=== PATIENT | female | born 1945 | race Caucasian/White ===

== ENCOUNTER 2017-02-25 13:36 | Inpatient (IN) | payer OTHER, MEDICARE ==
[~2017-02-25] VITALS: Ht 162.6 cm; Wt 139.8 kg
[2017-03-03] MEDS ORDERED: LISI40TA PO (11:45)
[2017-03-03] MEDS ORDERED: ASPI-110 PO (11:46)
[2017-03-03] MEDS ORDERED: LEVO150T7 PO (11:46)
[2017-03-03] MEDS ORDERED: MULT-65 PO (11:46)
[2017-03-03] MEDS ORDERED: VITA100018 PO (11:46)
[2017-03-03] MEDS ORDERED: LABE200T2 PO (11:46)
[2017-03-03] MEDS ORDERED: FISH100020 PO (11:46)
[2017-03-03] MEDS ORDERED: ATOR40TA16 PO (11:46)
[2017-03-03] MEDS ORDERED: GLUC100017 PO (11:46)
[2017-03-03] MEDS ORDERED: METF1000 PO (11:46)
[2017-03-03] MEDS ORDERED: CALC600T25 PO (11:46)
[2017-03-03] MEDS ORDERED: VITA10002 PO (11:46)
[2017-03-03] MEDS ORDERED: SPIR50TA PO (11:46)
[2017-03-03] MEDS ORDERED: GLIP5TAB8 PO (11:46)
[2017-03-03] MEDS ORDERED: VITA500T83 PO (11:46)
--- NOTE | 2017-03-03 18:13 | MH ---
cc: Maira SHAW M.D. DATE OF ADMISSION 03/15/2017 ADMISSION DIAGNOSIS Osteoarthritic degeneration left knee now being admitted for left total knee arthroplasty. ADMISSION HISTORY AND PHYSICAL This pleasant 71-year-old female is being admitted today for left total knee arthroplasty due to severe painful osteoarthritic degeneration of the left knee. PAST MEDICAL HISTORY Other past history: 1. The patient has a history of anesthetic problems. 2. Diabetes. 3. Vertigo. 4. Hernia. 5. Hypertension. 6. Kidney problems. 7. sleep apnea. 8. Thyroid problems. CURRENT MEDICATIONS Include: 1. Atorvastatin. 2. Glipizide. 3. Levoxyl. 4. Labetalol. 5. Lisinopril. 6. Metformin. 7. Spironolactone. 8. Lasix as needed. PAST SURGICAL HISTORY Previous surgery includes: 1. Right total knee arthroplasty in the past. 2. Right patella tendon replacement. 3. A total hysterectomy 1988. 4. Left rotator cuff repair. REVIEW OF SYSTEMS Noncontributory. FAMILY HISTORY Noncontributory. SOCIAL HISTORY She does not smoke or drink. ALLERGIES TO SULFA DRUGS AND ADHESIVE TAPE AND GLUE. PHYSICAL EXAMINATION GENERAL: We find a 71-year-old female well-developed, well-nourished, alert and oriented times three complaining of pain in her left knee. VITAL SIGNS: Blood pressure 142/100, pulse 82 and regular, respirations 18, temperature 97.8, pulse oximetry 97% on room air. HEENT: Eyes PERRL, EOMI. Ears, nose, mouth clear. NECK: Supple. LUNGS: Clear. HEART: Regular rate. ABDOMEN: Soft. Positive bowel sounds. Nontender. EXTREMITIES: Reveal the left knee to be tender with crepitance on range of motion. She is otherwise neurovascularly intact to her toes. IMPRESSION At this time is severe painful osteoarthritic degeneration left knee. PLAN The plan is admission for left total knee arthroplasty today. The patient given prescription for postoperative pain and anticoagulation control in the office. MD MICHAEL Sotelo/KK /3:42 PM /6:03 PM
[2017-03-15] MEDS ORDERED: VANCOMYCIN 1000 MG/NS 250 ML (for <70 kg) IV SCH ×2 (06:30)
[2017-03-15] MEDS ORDERED: ceFAZolin 2 GM PREMIX 50 ML IV SCH (06:30)
[2017-03-15] MEDS ORDERED: EXPAREL PERI-ARTICULAR INJECTION (TOTAL VOL. 120 ML) P-ARTICULR SCH ×2 (06:30)
[2017-03-15] MEDS ORDERED: CHLORHEXIDINE GLUCONATE 4% SOLN 120 ML BTL TOPICAL SCH (06:30)
[2017-03-15] MEDS ORDERED: SODIUM CHLORIDE 0.9% IV SCH ×4 (06:30)
[2017-03-15] MEDS ORDERED: TRANEXAMIC ACID IV SCH ×4 (06:30)
[2017-03-15] MEDS ORDERED: METOPROLOL TARTRATE 25 MG TAB PO PRN (06:45)
[2017-03-15] MEDS ORDERED: CHLORHEXIDINE GLUCONATE 2 % 1 PACK (2 CLOTHS) TOPICAL PRN (06:45)
[2017-03-15] MEDS ORDERED: POVIDONE IODINE 5% (ANTISEPSIS KIT) 4 APPLICATIONS EACH NARE PRN (06:45)
[2017-03-15] MEDS ORDERED: SODIUM CHLORID 0.9% 500 ML IV PRN (06:45)
[2017-03-15] MEDS ORDERED: INSULIN HUMAN REGULAR 1,000 UNITS/10 ML VIAL SQ PRN (06:45)
[2017-03-15] MEDS ORDERED: LACTATED RINGER'S 1000 ML IV PRN (06:45)
[2017-03-15 06:48] VITALS: BP 137/46; PULSE 73; RESP 20; TEMP 97.8; O2SAT 97
[2017-03-15] MEDS ORDERED: MIDAZOLAM HCL 2 MG/2 ML VIAL ONE (07:53)
[2017-03-15] MEDS ORDERED: FAMOTIDINE 20 MG/2 ML VIAL ONE (07:53)
[2017-03-15] MEDS ORDERED: TOBRAMYCIN SULFATE 1200 MG VIAL ONE (08:34)
[2017-03-15] MEDS ORDERED: ceFAZolin INJ 1,000 MG VIAL XX ONE (08:46)
[2017-03-15] MEDS ORDERED: TOBRAMYCIN SULFATE 1200 MG VIAL OTHER ONE ×2 (08:54→09:37)
[2017-03-15] MEDS ORDERED: ROPIVACAINE 0.5% PF INJ 30 ML VIAL NERV BLOCK ONE (09:00)
[2017-03-15] MEDS ORDERED: BUPIVACAINE HCL PF 0.25% 30 ML VIAL NERV BLOCK ONE (09:00)
[2017-03-15] MEDS ORDERED: DEXAMETHASONE SOD PHOS PF 10 MG/ML VIAL IV ONE (09:00)
[2017-03-15] MEDS ORDERED: ceFAZolin INJ 1,000 MG VIAL IV ONE (09:35)
[2017-03-15] MEDS ORDERED: VANCOMYCIN HCL 1000 MG VIAL ONE (10:32)
[2017-03-15] MEDS ORDERED: VANCOMYCIN HCL 1000 MG VIAL OTHER ONE (10:33)
[2017-03-15] MEDS ORDERED: ONDANSETRON HCL 4 MG/2 ML VIAL IVP PRN (10:45)
[2017-03-15] MEDS ORDERED: diphenhydrAMINE HCL 50 MG/ML VIAL IV PRN (10:45)
[2017-03-15] MEDS ORDERED: TRANEXAMIC ACID INJ 0 MG in SODIUM CHLORIDE 0.9% INJ 100 ML IV SCH (10:45)
[2017-03-15] MEDS ORDERED: NALOXONE HCL 0.4 MG/ML AMP IV PRN (10:45)
[2017-03-15] MEDS ORDERED: ACETAMINOPHEN 325 MG TAB PO PRN (10:45)
[2017-03-15] MEDS ORDERED: TEMAZEPAM 15 MG CAP PO PRN (10:45)
[2017-03-15] MEDS ORDERED: SODIUM CHLORIDE 0.9% FLUSH 5 ML FLUSH IVF PRN (10:45)
[2017-03-15] MEDS ORDERED: MORPHINE SULFATE 30 MG/30 ML PCA IV SCH (10:45)
[2017-03-15] MEDS ORDERED: Post-op Orders (for Pharmacy) MISC XX ONE (10:45)
--- NOTE | 2017-03-15 10:47 | HHI.FF ---
Face to Face Verification Diagnosis: (1) Status post total left knee replacement Physical Therapy Gait training Knee: Total knee, Protocol: Left, Full weight bearing Canvas Knee Splint: When in bed & 2 pillows btw thighs Nursing RN: 3 days/week x 2 weeks Nursing: Ernesto teaching, Dressing changes Dressing Changes: Daily dressing change, 4x4s, Gauze, Paper tape I have seen patient Rupal Vazquez on 03/15/17. My clinical findings support the need for the requested home health care services because: Limited ability to care for self High risk of falls I certify that my clinical findings support that this patient is homebound because: Unsteady gait/balance Maira Hong MD Mar 15, 2017 10:47
[2017-03-15] MEDS ORDERED: ADJUSTABLE COMM1 MIS (10:49)
[2017-03-15] MEDS ORDERED: CPMMACHINE (10:49)
[2017-03-15] MEDS ORDERED: WALKER WHEELS/F1 MIS (10:49)
[2017-03-15] MEDS ORDERED: DO NOT ADM ANY ANTICOAGULANT DRUGS PRN (11:00)
[2017-03-15] MEDS: LACTATED RINGER'S 1000 ML INJ 1,000 ML IV SCH ×2 (11:00→23:46)
[2017-03-15] MEDS ORDERED: fentaNYL CITRATE 250 MCG/5 ML AMP ONE (11:07)
[2017-03-15] MEDS ORDERED: SUGAMMADEX SODIUM 200 MG/2 ML VIAL IV PUSH ONE ×2 (11:24)
--- NOTE | 2017-03-15 11:47 | RADRPT ---
EXAM DATE/TIME: 03/15/2017 11:15 [place] COMPARISON: No previous studies available for comparison. INDICATIONS : Post op total left knee prosthesis. MEDICAL HISTORY : None. SURGICAL HISTORY : None. ENCOUNTER: Initial ACUITY: 1 day PAIN SCORE: 10/10 LOCATION: Right knee FINDINGS: Postsurgical features of left knee arthroplasty. Arthroplasty components are in anatomic alignment. N o significant acute bony fracture. Immediate postsurgical soft tissue features. CONCLUSION: 1. Status post left knee arthroplasty in anatomic alignment without significant acute bony fracture. Edinson Funes MD on March 15, 2017 at 11:43 Board Certified Radiologist. This report was verified electronically.
[2017-03-15] MEDS ORDERED: ONDANSETRON HCL 4 MG/2 ML VIAL IV PUSH ONE (12:00)
[2017-03-15] MEDS ORDERED: LACTATED RINGER'S 1000 ML INJ 2,000 ML IV ONE (12:00)
[2017-03-15] MEDS ORDERED: PROPOFOL 200 MG/20 ML AMP IV ONE (12:00)
[2017-03-15 12:20] VITALS: BP 174/77; PULSE 75; RESP 15; TEMP 95.8; O2SAT 100
[2017-03-15] MEDS: PCA - TOTAL MG MORPHINE DELIVERED PER SHIFT SCH ×2 (14:00→21:05)
--- NOTE | 2017-03-15 14:13 | PD.CONS ---
HPI Service [facility] Hospitalists Consult Requested By Dr. Floyd Hong Reason for Consult Medical Management Primary Care Physician Santiago Olguin MD Diagnoses: History of Present Illness Mrs. Vazquez is a pleasant 71 y/o female with HTN, hyperlipidemia, hypothyroidism , osteoarthritis and diabetes mellitus who was admitted on 03/15/17 for left total knee arthroplasty with Dr. Floyd Hong for severe degenerative osteoarthritis. The [facility] Hospitalist team was consulted to help with managing the pts chronic medical issues. Pt is seen post-operatively. Her pain is currently controlled. Pt just worked with PT and was able to get out of the bed to the chair but then became very nauseated and had some dry heaving/vomiting. Pt denies any abdominal pain, chest pain, or SOB. Vitals are stable. Mackenzie catheter in place. Her home medications were verified with the pt at bedside. Review of Systems Constitutional: DENIES: Fever, Chills Respiratory: DENIES: Shortness of breath Cardiovascular: DENIES: Chest pain Gastrointestinal: COMPLAINS OF: Nausea, Vomiting, DENIES: Abdominal pain Genitourinary: DENIES: Hematuria Musculoskeletal: COMPLAINS OF: Joint pain Integumentary: DENIES: Rash Neurologic: DENIES: Headache Psychiatric: DENIES: Confusion Past Family Social History Past Medical History Anxiety CAD CKD, stage 3 Diabetes mellitus, Hgb A1C 7.1% in 12/2016 GERD Hx of H. pylori infection HTN Hyperlipidemia Hypothyroidism Osteoarthritis Obesity Vertigo Past Surgical History Right knee poly exchange and allograft reconstruction patellar tendon in 2012 Right total knee arthroplasty in 2011 [facility] Reported Medications -Aspirin 81 Mg PO DAILY -Metformin 1,000 Mg PO BIDPC -Lisinopril 40 Mg PO BID -Levothyroxine 150 Mcg PO DAILY -Spironolactone 25 Mg PO DAILY -Labetalol 200 Mg PO TID -Atorvastatin 80Mg PO HS -Glipizide 10Mg PO BIDAC Fish Oil 1000 mg PO DAILY Glucosamine 1,000 Mg PO DAILY Vitamin B-12 1,000 Mcg PO ,W, Calcium 600 Mg PO DAILY Vitamin C ER 500 Mg PO DAILY Vitamin D3 1,000 Units PO DAILY Multi-Vitamin Daily 1 Tab PO DAILY Allergies: Coded Allergies: Sulfa (Verified Allergy, Severe, 03/15/17) Latex (Verified Allergy, Intermediate, RASH, 03/15/17) Family History Noncontributory Social History Denies any alcohol, tobacco or illicit drug use Physical Exam Vital Signs Vital Signs Date Time Temp Pulse Resp B/P Pulse Ox O2 Delivery O2 Flow Rate FiO2 03/15/17 12:20 95.8 75 15 174/77 100 03/15/17 12:15 98.1 71 14 159/78 99 Nasal Cannula 2 03/15/17 12:00 71 14 156/75 99 Nasal Cannula 2 03/15/17 11:45 72 14 168/77 99 Nasal Cannula 3 03/15/17 11:30 72 14 162/75 99 Nasal Cannula 4 03/15/17 11:29 14 03/15/17 11:15 73 14 157/72 98 Nasal Cannula 4 03/15/17 11:00 97.8 72 14 147/67 96 Nasal Cannula 4 03/15/17 06:48 97.8 73 20 137/46 97 Physical Exam GENERAL: This is a well-nourished, well-developed patient, in no apparent distress. HEENT: Atraumatic. Normocephalic. No temporal or scalp tenderness. No scleral icterus. Airway patent. NECK: Trachea midline, supple, nontender, no meningeal signs. CARDIO: Regular RESP: CTA bilaterally. No wheezes, rales, or rhonchi. ABD: +BS, soft, non-tender, nondistended. EXT: Left knee bandages are c/d/i. NEURO: Awake and alert. Motor and sensory grossly within normal limits. Normal speech. Laboratory Laboratory Tests Test 03/15/17 07:15 Blood Type O POSITIVE Antibody Screen NEGATIVE Blood Bank Comment Imaging Last Impressions Knee X-Ray 03/15/17 1043 Signed Impressions: Service Date/Time: Wednesday, March 15, 2017 11:15 - CONCLUSION: 1. Status post left knee arthroplasty in anatomic alignment without significant acute bony fracture. Edinson Funes MD Assessment and Plan Problem List: (1) Status post total left knee replacement Status: Acute Plan: - Pt s/p left total knee arthroplasty on 03/15/[address] Hong - Post-op pain control per Ortho - Zofran Q4H PRN for post-op nausea/vomiting - PT daily - Constipation precautions - IS - DVT prophylaxis with Lovenox (2) Osteoarthritis of left knee Status: Chronic Plan: - See above. (3) Diabetes Status: Chronic Plan: - OHA resumed - Low dose NovoLog SSI - Accu checks (4) HTN (hypertension), benign Status: Chronic Plan: - Home meds resumed - monitor (5) Hypothyroidism Status: Chronic Plan: - Home meds resumed (6) Chronic kidney disease Status: Chronic (7) Sleep apnea Status: Chronic (8) Diabetes mellitus Status: Acute Assessment and Plan Patient examined. Assessment and plan formulated with Maeve Ogden PA-C. I agree with the above. s/p tka. htn,dm,hypothyroidism. currently with nausea and dry heaves. meds given reviewed home meds with pt and family for clarification. Problem Qualifiers (1) Osteoarthritis of left knee: Qualified Code: M17.12 - Primary osteoarthritis of left knee (2) Diabetes: (3) Chronic kidney disease: Qualified Code: N18.3 - Stage 3 chronic kidney disease Maeve Ogden Mar 15, 2017 14:13 Floyd Bañuelos MD Mar 15, 2017 15:27
[2017-03-15] MEDS ORDERED: MAGNESIUM HYDROXIDE SUSP 30 ML CUP PO PRN (14:45)
[2017-03-15] MEDS ORDERED: BISACODYL 10 MG SUPP RECTAL PRN (14:45)
[2017-03-15] MEDS ORDERED: SENNOSIDES 8.6 MG TAB PO PRN (14:45)
[2017-03-15] MEDS: INSULIN ASPART SUPPLEMENTAL SCALE SQ SCH ×2 (15:57→21:04)
[2017-03-15] MEDS: glipiZIDE 10 MG TAB PO SCH (15:57)
[2017-03-15 16:00] VITALS: BP 180/67; PULSE 70; RESP 17; TEMP 96.5; O2SAT 99
[2017-03-15] MEDS ORDERED: glipiZIDE 5 MG TAB PO SCH (16:00)
[2017-03-15] MEDS ORDERED: cloNIDine HCL 0.1 MG TAB PO PRN (16:30)
[2017-03-15] MEDS: LABETALOL HCL 200 MG TAB PO SCH (16:34)
[2017-03-15] MEDS: metFORMIN HCL 500 MG TAB PO SCH (17:32)
[2017-03-15] MEDS: ONDANSETRON HCL 4 MG/2 ML VIAL IVP PRN (18:48)
[2017-03-15] MEDS ORDERED: ATORVASTATIN 40 MG TAB PO SCH (21:00)
[2017-03-15] MEDS: SODIUM CHLORIDE 0.9% FLUSH 5 ML FLUSH IVF SCH (21:00)
[2017-03-15] MEDS ORDERED: LABETALOL HCL 200 MG TAB PO SCH (21:00)
[2017-03-15] MEDS: ATORVASTATIN 80 MG TAB PO SCH (21:05)
[2017-03-15] MEDS: LISINOPRIL 20 MG TAB PO SCH (21:05)
[2017-03-15 21:10] VITALS: BP 172/74; PULSE 76; RESP 19; TEMP 96; O2SAT 96
[2017-03-16 00:10] VITALS: BP 137/61; PULSE 80; RESP 19; TEMP 97.9; O2SAT 95
[2017-03-16 05:00] VITALS: BP 146/69; PULSE 82; RESP 19; TEMP 97.7; O2SAT 95
[2017-03-16] MEDS: LEVOTHYROXINE SODIUM 150 MCG TAB PO SCH (05:26)
[2017-03-16] MEDS: PCA - TOTAL MG MORPHINE DELIVERED PER SHIFT SCH ×3 (05:27→22:00)
[2017-03-16] MEDS: INSULIN ASPART SUPPLEMENTAL SCALE SQ SCH ×4 (06:07→21:00)
[2017-03-16] MEDS: glipiZIDE 10 MG TAB PO SCH ×2 (06:09→16:21)
[2017-03-16 08:00] VITALS: BP 149/65; PULSE 74; RESP 18; TEMP 98.4; O2SAT 96
--- NOTE | 2017-03-16 08:07 | PD.ORT.PN ---
Subjective Subjective Remarks pt fairly comfortable today. worried about falling. Objective Vitals Vital Signs Date Time Temp Pulse Resp B/P Pulse Ox O2 Delivery O2 Flow Rate FiO2 03/16/17 05:27 18 03/16/17 05:00 97.7 82 19 146/69 95 03/16/17 00:10 97.9 80 19 137/61 95 03/15/17 21:10 96.0 76 19 172/74 96 03/15/17 21:05 18 03/15/17 16:00 96.5 70 17 180/67 99 03/15/17 14:00 18 03/15/17 12:20 95.8 75 15 174/77 100 03/15/17 12:15 98.1 71 14 159/78 99 Nasal Cannula 2 03/15/17 12:00 71 14 156/75 99 Nasal Cannula 2 03/15/17 11:45 72 14 168/77 99 Nasal Cannula 3 03/15/17 11:30 72 14 162/75 99 Nasal Cannula 4 03/15/17 11:29 14 03/15/17 11:15 73 14 157/72 98 Nasal Cannula 4 03/15/17 11:00 97.8 72 14 147/67 96 Nasal Cannula 4 I/O 03/15/17 03/15/17 03/15/17 03/16/17 03/16/17 03/16/17 07:00 15:00 23:00 07:00 15:00 23:00 Intake Total 2040 ml 240 ml 480 ml Output Total 550 ml Balance 1490 ml 240 ml 480 ml Intake Oral 240 ml 240 ml 480 ml Other 1800 ml Output Urine Total 350 ml Estimated Blood Loss 200 ml # Voids 1 3 3 # Bowel Movements 0 0 Imaging Last 24 hours Impressions Knee X-Ray 03/15/17 1043 Signed Impressions: Service Date/Time: Wednesday, March 15, 2017 11:15 - CONCLUSION: 1. Status post left knee arthroplasty in anatomic alignment without significant acute bony fracture. Edinson Funes MD Objective Remarks Dressing dry and intact. No calf tenderness. Assessment & Plan Ortho Post Op Day #: 1 Problem List: Assessment and Plan PT OOB, wound care. 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 Maira Hong MD Mar 16, 2017 08:07
[2017-03-16 08:17] LABS: AUTOMATED NEUTROPHIL # 11.6 TH/MM3 (1.8-7.7); BASOPHIL # 0.1 TH/MM3 (0-0.2); BASOPHIL % 0.5 % (0.0-2.0); EOSINOPHIL % 0.1 % (0.0-4.0); HEMATOCRIT 29.7 % (35.0-46.0); LYMPH % 10.7 % (9.0-44.0); LYMPHOCYTE # 1.7 TH/MM3 (1.0-4.8); MEAN CELL VOLUME 90.1 FL (80.0-100.0); MEAN CORPUSCULAR HEMOGLOBIN 30.2 PG (27.0-34.0); MEAN CORPUSCULAR HGB CONC 33.5 % (32.0-36.0); MONO % 15.3 % (0.0-8.0); NEUT % 73.4 % (16.0-70.0); PLATELET COUNT 264 TH/MM3 (150-450); RED CELL DISTRIBUTION WIDTH 13.8 % (11.6-17.2); WHITE BLOOD COUNT 15.8 TH/MM3 (4.0-11.0)
[2017-03-16 08:23] LABS: HEMO FLAGS AUTO DIFF
[2017-03-16 08:48] LABS: BICARBONATE 22.8 MEQ/L (21.0-32.0); MAGNESIUM 1.4 MG/DL (1.5-2.5); POTASSIUM 4.1 MEQ/L (3.5-5.1)
[2017-03-16] MEDS ORDERED: SPIRONOLACTONE 50 MG TAB PO SCH (09:00)
[2017-03-16] MEDS: CYANOCOBALAMIN 1,000 MCG TAB PO SCH (09:00)
[2017-03-16] MEDS: SODIUM CHLORIDE 0.9% FLUSH 5 ML FLUSH IVF SCH ×2 (09:00→21:00)
[2017-03-16] MEDS ORDERED: NON-FORMULARY DRUG (Omega-3 Fatty Acids (Fish Oil 1000 mg) 1 CAP) PO SCH (09:00)
[2017-03-16] MEDS ORDERED: NON-FORMULARY DRUG (Glucosamine 1,000 MG) PO SCH (09:00)
[2017-03-16] MEDS: LISINOPRIL 20 MG TAB PO SCH ×2 (09:10→23:01)
[2017-03-16] MEDS: MULTIVITAMIN TAB PO SCH (09:10)
[2017-03-16] MEDS: metFORMIN HCL 500 MG TAB PO SCH ×2 (09:10→18:09)
[2017-03-16] MEDS: SPIRONOLACTONE 25 MG TAB PO SCH (09:10)
[2017-03-16] MEDS: ENOXAPARIN SODIUM 30 MG/0.3 ML SYRINGE SQ SCH ×2 (09:10→22:59)
[2017-03-16] MEDS: LABETALOL HCL 200 MG TAB PO SCH ×3 (09:11→18:09)
[2017-03-16] MEDS: ACETAMINOPHEN/HYDROcodone 325 MG/7.5 MG TAB PO PRN ×4 (09:11→23:24)
[2017-03-16] MEDS: ASCORBIC ACID 500 MG TAB PO SCH (09:11)
[2017-03-16] MEDS: CHOLECALCIFEROL (VIT D3) 1000 UNIT TAB PO SCH (09:11)
[2017-03-16] MEDS: ASPIRIN EC 81 MG TABEC PO SCH (09:11)
[2017-03-16] MEDS: CALCIUM CARBONATE 500 MG CHEWABLE TAB PO SCH (09:17)
[2017-03-16 10:06] LABS: SCAN/DIFF AUTO DIFF CONFIRMED
[2017-03-16] MEDS: MAGNESIUM SULFATE 1 GM PREMIX 100 ML IV SCH ×2 (10:28→11:52)
[2017-03-16] MEDS: LACTATED RINGER'S 1000 ML INJ 1,000 ML IV SCH (11:43)
[2017-03-16 12:00] VITALS: BP 152/71; PULSE 68; RESP 18; TEMP 96.5; O2SAT 98
[2017-03-16 16:00] VITALS: BP 143/70; PULSE 74; RESP 18; TEMP 98.2; O2SAT 97
[2017-03-16 20:10] VITALS: BP 130/59; PULSE 72; RESP 17; TEMP 96.7; O2SAT 96
[2017-03-16] MEDS: MULTIVITAMINS/MINERALS THERAPEUTIC TAB PO SCH (23:01)
[2017-03-16] MEDS: ATORVASTATIN 80 MG TAB PO SCH (23:01)
[2017-03-16] MEDS: DOCUSATE SODIUM 100 MG CAP PO SCH (23:01)
[2017-03-17 00:15] VITALS: BP 114/53; PULSE 75; RESP 18; TEMP 98.5; O2SAT 95
[2017-03-17 04:20] VITALS: BP 113/53; PULSE 74; RESP 17; TEMP 97.3; O2SAT 96
[2017-03-17] MEDS: ACETAMINOPHEN/HYDROcodone 325 MG/7.5 MG TAB PO PRN ×3 (04:50→15:19)
[2017-03-17] MEDS: LEVOTHYROXINE SODIUM 150 MCG TAB PO SCH (06:00)
[2017-03-17] MEDS: glipiZIDE 10 MG TAB PO SCH ×2 (07:00→15:19)
[2017-03-17] MEDS: INSULIN ASPART SUPPLEMENTAL SCALE SQ SCH ×2 (07:00→13:43)
[2017-03-17 07:31] LABS: HEMATOCRIT 26.3 % (35.0-46.0); REVIEW FLAG FINAL
--- NOTE | 2017-03-17 07:49 | PD.ORT.PN ---
Subjective Subjective Remarks pt fairly comfortable today. brace working well. Objective Vitals Vital Signs Date Time Temp Pulse Resp B/P Pulse Ox O2 Delivery O2 Flow Rate FiO2 03/17/17 04:20 97.3 74 17 113/53 96 03/17/17 00:15 98.5 75 18 114/53 95 03/16/17 20:10 96.7 72 17 130/59 96 03/16/17 16:00 98.2 74 18 143/70 97 03/16/17 12:00 96.5 68 18 152/71 98 03/16/17 10:11 18 03/16/17 08:00 98.4 74 18 149/65 96 I/O 03/16/17 03/16/17 03/16/17 03/17/17 03/17/17 03/17/17 06:59 14:59 22:59 06:59 14:59 22:59 Intake Total 480 ml 650 ml 480 ml 120 ml Balance 480 ml 650 ml 480 ml 120 ml Intake Oral 480 ml 650 ml 480 ml 120 ml # Voids 3 3 1 1 # Bowel Movements 0 0 0 Result Diagram: 03/17/17 0640 03/16/17 0729 Imaging Last 24 hours Impressions Knee X-Ray 03/15/17 1043 Signed Impressions: Service Date/Time: Wednesday, March 15, 2017 11:15 - CONCLUSION: 1. Status post left knee arthroplasty in anatomic alignment without significant acute bony fracture. Edinson Funes MD Objective Remarks Dressing dry and intact. No calf tenderness. Assessment & Plan Ortho Post Op Day #: 2 Problem List: Assessment and Plan PT OOB, wound care. SNF tomorrow. Maira Hong MD Mar 17, 2017 07:49
[2017-03-17 08:00] VITALS: BP 115/52; PULSE 77; RESP 16; TEMP 97; O2SAT 98
[2017-03-17] MEDS: ONDANSETRON HCL 4 MG/2 ML VIAL IVP PRN (09:50)
[2017-03-17] MEDS: ASCORBIC ACID 500 MG TAB PO SCH (09:55)
[2017-03-17] MEDS: LISINOPRIL 20 MG TAB PO SCH (09:55)
[2017-03-17] MEDS: CALCIUM CARBONATE 500 MG CHEWABLE TAB PO SCH (09:55)
[2017-03-17] MEDS: metFORMIN HCL 500 MG TAB PO SCH (09:56)
[2017-03-17] MEDS: MULTIVITAMIN TAB PO SCH (09:56)
[2017-03-17] MEDS: LABETALOL HCL 200 MG TAB PO SCH ×2 (09:56→13:38)
[2017-03-17] MEDS: MULTIVITAMINS/MINERALS THERAPEUTIC TAB PO SCH (09:56)
[2017-03-17] MEDS: ASPIRIN EC 81 MG TABEC PO SCH (09:57)
[2017-03-17] MEDS: DOCUSATE SODIUM 100 MG CAP PO SCH (09:57)
[2017-03-17] MEDS: CHOLECALCIFEROL (VIT D3) 1000 UNIT TAB PO SCH (09:57)
[2017-03-17] MEDS: SPIRONOLACTONE 25 MG TAB PO SCH (09:57)
[2017-03-17] MEDS: CYANOCOBALAMIN 1,000 MCG TAB PO SCH (09:57)
[2017-03-17] MEDS: ENOXAPARIN SODIUM 30 MG/0.3 ML SYRINGE SQ SCH (09:59)
[2017-03-17] MEDS: SODIUM CHLORIDE 0.9% FLUSH 5 ML FLUSH IVF SCH (09:59)
[2017-03-17] MEDS ORDERED: BACITRACIN OINT 0.9 GM PKT TOP PRN (10:15)
--- NOTE | 2017-03-17 10:31 | MP ---
cc: Maira HONG DATE OF SURGERY 03/15/2017 PREOPERATIVE DIAGNOSIS Osteoarthritic degeneration left knee. POSTOPERATIVE DIAGNOSIS Osteoarthritic degeneration left knee. SURGERY PERFORMED Left total knee arthroplasty using Consensus knee system components sizes 3 femur, a size 1 tibia, size 1 patella and a size 14 insert with two batches of antibiotic impregnated cement with Tobramycin. SURGEON Dr. Hong PASSENGER LOCOMOTIVE ENGINEER THEO Li ANESTHESIA General intubation and block PROCEDURE After successful induction of anesthesia, the patient is placed on the operating room table in the supine position. The knee is prepped and draped in the usual manner. No tourniquet was utilized. A longitudinal incision is made extending from 3 inches proximal to the superior pole of the patella, across the patella in longitudinal fashion, and down past the insertion of the tibial tubercle into the proximal tibia. The incision is carried down through subcutaneous tissue along the medial aspect of the patella and retinaculum, down through the capsule to expose the knee joint. The patella and patellar tendon are freed up enough to allow the patella to be inverted and retracted off the lateral side of the knee joint. The knee joint is left exposed. Small osteophytes are removed. All soft tissue is removed to allow proper position of the femoral and tibial cutting jig guide. The first femoral jig is then inserted along the distal end of the femur after first measuring to decide whether this is a small, medium, or large component. The notch is then drilled and the tibial cutting guide inserted into the femoral cutting guide, along with the ankle brace to allow for proper measurement of the tibial cutting surface that needed to be resected. Pins are inserted into the tibial cutting jig and femoral cutting jig to hold them in place. An oscillating saw is then used to resect the surface of the tibia. The surface of the tibia is then completely removed using sharp and blunt dissection. The anterior and posterior cuts of the femur are then made as well using an oscillating saw through the cutting guide. All guides are then removed and the varus/valgus angulation cutting guide applied to the femur for proper measurement of the proper amount of valgus. The anterior cutting guide for the femur is then inserted at the anterior femoral cuts made. Next, the first block trial is inserted into the femur to allow for proper condyle drill holes to be made which are then made followed by removal of the bone between the condyles using an oscillating saw as well as the bone removed at the most posterior surface of the condyle. After this, this guide is removed and the chamfer cuts made using the chamfer cutting guide from both anterior and posterior. Next, the femoral trial is then inserted, the tibial surface reflected anterior to expose the tibial surface and a tibial stem guide is inserted after first measuring for a standard, standard plus, large, or large plus surface to be used. After the stem is impacted the trial tibial surface is applied followed by the trial meniscal components. After full range of motion is found with the appropriate length meniscal components varying the patella is prepared by resecting the posterior aspect of the patella using an oscillating saw, inserting a trial. The trial is then removed and the cruciate cutting guide applied using the bur to cut the cruciate cuts. After cruciate cuts are made all trials are removed. The wound is irrigated copiously with antibiotic solution and Water-Pik and the actual components inserted into place using Consensus knee system components sizes 3 femur, a size 1 tibia, size 1 patella and a size 14 insert with two batches of antibiotic impregnated cement with Tobramycin. After the cement has hardened and the components are found to have full range of motion with no instability. The wound again is irrigated copiously with antibiotic solution, meticulous hemostasis achieved. 120 cc of Exparel used for extra local block around the knee joint. The deep fascia approximated with running #2 quill, subcutaneous tissue approximated using interrupted running 2-0 and 3-0 Monocryl sutures, Steri-Strips, sterile dressing, and knee immobilizer. THEO Li was present during the entire procedure to include patient positioning and the procedure. The medical necessity of a nurse practitioner nurse first assist was indicated this case due to the surgical complexity of the case itself and during the surgical case as surgical assistant was working the back table while my surgical territory manager METAL SHEET ROLLER OPERATOR was directly assisting me. Total blood loss 200 cc. Sponge suture count correct. The patient tolerated the procedure well and left the operating room in satisfactory condition. J. MD MICHAEL Watt/AGA /11:07 AM /10:26 AM
[2017-03-17 12:00] VITALS: BP 186/77; PULSE 74; RESP 20; TEMP 97.4; O2SAT 99
[2017-03-17] MEDS ORDERED: HYDR-3288 PO ×2 (14:38)
[2017-03-17 15:26] VITALS: BP 142/44
== END 2017-03-17 15:57 | DRG 470 ==
LOC: HSDI 03-15 06:01 → N06B 03-15 12:31
PROVIDERS: ADMIT Surgery; ATTEND Surgery
PROC: 3E0T3CZ (ICD-10-PCS; 2017-03-15)
PROC: 0SRD0J9 Replacement of Left Knee Joint with Synthetic Substitute, Cemented, Open Approach (ICD-10-PCS; principal; 2017-03-15 07:57)
DX: M17.12 Unilateral primary osteoarthritis, left knee (principal); E11.22 Type 2 diabetes mellitus with diabetic chronic kidney disease; N18.3 Chronic kidney disease, stage 3 (moderate); Z68.43 Body mass index [BMI] 50.0-59.9, adult; I12.9 Hypertensive chronic kidney disease with stage 1 through stage 4 chronic kidney disease, or unspecified chronic kidney disease; E03.9 Hypothyroidism, unspecified; E78.5 Hyperlipidemia, unspecified; G47.30 Sleep apnea, unspecified; Z96.651 Presence of right artificial knee joint; E66.9 Obesity, unspecified; I25.10 Atherosclerotic heart disease of native coronary artery without angina pectoris; K21.9 Gastro-esophageal reflux disease without esophagitis; R11.2 Nausea with vomiting, unspecified; Z79.84 Long term (current) use of oral hypoglycemic drugs; Z86.19 Personal history of other infectious and parasitic diseases
CPT/HCPCS: 73560; 80048; 82948; 83735; 85014; 85018; 85025; 86850; 86900; 86901; 94150; C1776; C9290; J0690; J1100; J1650; J1815; J2250; J2270; J2405; J2795; J3010; J3260; J3370; J3475; J7050; J7120; L1810; L1830

== ENCOUNTER → 2017-03-03 | Outpatient (CLI) | payer OTHER ==
[~2017-03-03] MED LIST: 1-ME1LIQ OR; ACET1TAB86 PO; ADJUSTABLE COMM1 MIS; AMLO5 PO; ASPI-110 PO; ASPI325T PO; ASPI81 PO; ATOR40TA16 PO; B12; CALC-187 PO; CALC500T30 PO; CALC600T25 PO; CEPH500C3 PO; CPMMACHINE; DOXY100C PO; ENOX30P SQ; FISH100020 PO; FURO20TA PO; GLIP5 PO; GLIP5TAB8 PO; GLUC100017 PO; GLUCTAB PO; GLYB1TAB51 PO; HYDR-3288 PO; HYDR-3516 PO; LABE200T2 PO; LEVO125T6 OR; LEVO150T7 PO; LIPI80TA16 PO; LISI-366 PO; LISI40TA PO; LORTA5 PO; MAGNESIUM WITH ZINC; METF1000 PO; MULT-65 PO; OMEG600C2 PO; PIOG30TA4 PO; SITA100 PO; SPIR50TA PO; TAB-TAB PO; VIT250TA PO; VITA100018 PO; VITA10002 PO; VITA500T83 PO; WALKER WHEELS/F1 MIS
[2017-03-03 12:01] LABS: AUTOMATED NEUTROPHIL # 9.1 TH/MM3 (1.8-7.7); BASOPHIL # 0.1 TH/MM3 (0-0.2); EOSINOPHIL # 0.5 TH/MM3 (0-0.4); HEMATOCRIT 35.1 % (35.0-46.0); HEMO FLAGS DIFF FINAL; LYMPH % 15.7 % (9.0-44.0); MEAN CELL VOLUME 89.9 FL (80.0-100.0); MEAN CORPUSCULAR HEMOGLOBIN 29.6 PG (27.0-34.0); MEAN CORPUSCULAR HGB CONC 32.9 % (32.0-36.0); MONO % 8.7 % (0.0-8.0); NEUT % 70.6 % (16.0-70.0); PLATELET COUNT 310 TH/MM3 (150-450); RED CELL DISTRIBUTION WIDTH 13.6 % (11.6-17.2)
[2017-03-03 12:05] LABS: BLOOD, URINE NEG (NEG); GLUCOSE,URINE NEG (NEG); HYALINE CAST, URINE 1 /lpf (RARE); KETONE, URINE NEG (NEG); NITRITE,URINE NEG (NEG); URINE COLOR YELLOW (YELLW/STRAW)
[2017-03-03 12:07] LABS: APTT (PATIENT) 25.4 SEC (24.3-30.1); PROTHROMBIN TIME - PATIENT 10.6 SEC (9.8-11.6)
[2017-03-03 12:12] LABS: COMMENT (UR) CATH-CULT NOT IND; CULTURE IF INDICATED CATH CULTURE NOT IND
[2017-03-03 12:26] LABS: ANION GAP 7 MEQ/L (5-15); AST (GOT) 22 U/L (15-37); BLOOD UREA NITROGEN 23 MG/DL (7-18); CHLORIDE 110 MEQ/L (98-107); GLOMERULAR FILTRATION RATE 46 ML/MIN (>89); GLUCOSE,FASTING 100 MG/DL (74-99); POTASSIUM 4.7 MEQ/L (3.5-5.1); SODIUM (NA) 143 MEQ/L (136-145)
[2017-03-03 12:31] LABS: ALKALINE PHOSPHATASE 98 U/L (45-117); ALT (GPT) 25 U/L (10-53); TOTAL BILIRUBIN ADULT 0.6 MG/DL (0.2-1.0)
== END ==
LOC: CPRE 10:36
PROVIDERS: ATTEND Surgery
DX: Z01.812 Encounter for preprocedural laboratory examination (principal)
CPT/HCPCS: 36415; 80053; 81001; 85025; 85610; 85730